=== PATIENT | male | born 1950 | race Caucasian/White ===

== ENCOUNTER 2019-08-29 22:27 | Emergency (ER) | payer OTHER, BC ==
[2019-08-29] MEDS ORDERED: CIPROFLOXACIN 400mg IV 400 MG/200 ML BAG IV ONE (22:53)
[2019-08-29] MEDS ORDERED: NA CHLORIDE 0.9% 3,000 ML ONE (22:53)
[2019-08-29] MEDS ORDERED: METRONIDAZOLE 500mg IVPB 500 MG/100 ML BAG IV ONE (22:53)
[2019-08-29] MEDS ORDERED: ONDANSETRON 4 MG/2 ML VIAL ONE (22:53)
[2019-08-29] MEDS ORDERED: FAMOTIDINE 20 MG/2 ML VIAL IV ONE (22:53)
[2019-08-29] MEDS ORDERED: FENTANYL CITR 100 MCG/2 ML ONE (22:53)
[2019-08-29 23:19] LABS: Absolute Lymphocytes (CBC) 0.4 K/uL (0.7-4.9); Basophils % 0.4 % (0-1.3); Lymphocytes % 15.2 % (15.3-44.8); MPV 9.1 fL (7.6-11.3); RBC Red Blood Cell Count 3.29 M/uL (4.33-5.43)
[2019-08-29 23:21] LABS: Protime INR 3.27
--- NOTE | 2019-08-29 23:43 | RAD REPORT ---
EXAM DESCRIPTION: RAD - Chest Single View - 08/29/2019 11:19 pm CLINICAL HISTORY: COUGH Chest pain. COMPARISON: No comparisons FINDINGS: Portable technique limits examination quality. The lungs are grossly clear. The heart is normal in size. No displaced fractures.Right-sided port cat heter has tip in the right atrium. IMPRESSION: No acute intrathoracic process suspected.
[2019-08-29 23:52] LABS: ALT/SGPT 14 U/L (12-78); AST/SGOT 25 U/L (15-37); Albumin 1.4 g/dL (3.4-5.0); Alkaline Phosphatase 111 U/L (45-117); BUN Blood Urea Nitrogen 36 mg/dL (7-18); Bicarbonate 27 mmol/L (21-32); Bilirubin Direct 0.6 mg/dL (0-0.2); Bilirubin Total 1.2 mg/dL (0.2-1.0); CKMB Creatine Kinase MB < 1.0 ng/mL (0.3-3.6); Creatine Phosphokinase 38 U/L (39-308); Glucose Level 98 mg/dL (74-106); Lipase 32 U/L (73-393); Magnesium 1.5 mg/dL (1.8-2.4); NT PRO-BNP 1425 pg/mL (<125); Potassium 4.1 mmol/L (3.5-5.1); Protein, Total 5.6 g/dL (6.4-8.2); Sodium Level 130 mmol/L (136-145); Troponin (Emerg Dept Use Only) < 0.02 ng/mL (0.0-0.045)
[2019-08-30 00:52] LABS: Anisocytosis 2+; Blood Morphology Comment NOTED (NOT SEEN); Platelet Estimate ADEQ; Polychromasia 1+
--- NOTE | 2019-08-30 01:30 | ER ---
Nurse's Notes [facility] Name: Domenico Gann Age: 69 yrs Sex: Male : 1950 Arrival Date: 08/29/2019 Time: 22:31 Bed 14 Private MD: Diagnosis: Abdominal tenderness-MILD PNEUMOPERITONUM, METATATIC PANCREATIC CANCER;Ascites-LARGE;Neutropenia;Anemia, unspecified;Hypomagnesemia;Hypotension Presentation: 08/29 22:35 Presenting complaint: EMS states: Pt with Hx of Pancreatic Cancer with Alder S/P wh Paracentesis last Wednesday with 6L removed, C/O weakness, nausea, vomiting and abdominal pain. Transition of care: patient was not received from another setting of care. Onset of symptoms was August 29, 2019. Risk Assessment: Do you want to hurt yourself or someone else? Patient reports no desire to harm self or others. Initial Sepsis Screen: Does the patient meet any 2 criteria? Systolic BP < 90 mmHg. HR > 90 bpm. Yes Does the patient have a suspected source of infection? Yes: Acute abdominal pain. Care prior to arrival: Medication(s) given: Normal saline infusion, 1000 mL, IV initiated. 20 GA, in the left antecubital area. 22:35 Method Of Arrival: EMS: [facility] 22:35 Acuity: EJ 2 Historical: - Allergies: 08/30 00:20 Cefzil; - Home Meds: 00:20 pravastatin 20 mg oral tab [Active]; montelukast 10 mg oral tab [Active]; Nexium 20 mg Oral cpDR [Active]; CoQ-10 oral [Active]; Centrum oral oral [Active]; Xarelto 20 mg oral tab [Active]; tramadol 50 mg Oral tab [Active]; loperamide 2 mg Oral cap [Active]; - PMHx: 00:20 Cancer; Chemo; Hypertension; - PSHx: 00:20 Stent Placement in Bile Duct; Paracentesis; - Immunization history:: Adult Immunizations not up to date. - Family history:: not pertinent. - Social history:: Smoking status: Patient/guardian denies using tobacco. - Ebola Screening: : Patient negative for fever greater than or equal to 101.5 degrees Fahrenheit, and additional compatible Ebola Virus Disease symptoms Patient denies exposure to infectious person. Screenin/24 22:35 Abuse screen: Denies threats or abuse. Denies injuries from another. Nutritional wh screening: No deficits noted. Tuberculosis screening: No symptoms or risk factors identified. Fall Risk None identified. Assessment: 22:35 General: Appears in no apparent distress. Behavior is calm, cooperative, appropriate wh for age. Pain: Complains of pain in abdomen Pain does not radiate. Pain currently is 8 out of 10 on a pain scale. Quality of pain is described as aching, Pain began suddenly. Neuro: Level of Consciousness is awake, alert, obeys commands, Oriented to person, place, time, situation, Appropriate for age. Cardiovascular: Heart tones S1 S2 Rhythm is sinus tachycardia. Respiratory: Airway is patent Respiratory effort is even, unlabored, Respiratory pattern is regular, symmetrical, Breath sounds are clear bilaterally. GI: Abdomen is round noted to have ascites, Bowel sounds present X 4 quads. Abd is rigid Reports diarrhea, nausea, vomiting. : No signs and/or symptoms were reported regarding the genitourinary system. EENT: No signs and/or symptoms were reported regarding the EENT system. Derm: Skin is intact, is healthy with good turgor, Skin is pink, warm \T\ dry. normal. Musculoskeletal: Circulation, motion, and sensation intact. 23:30 Reassessment: Patient appears in no apparent distress at this time. No changes from previously documented assessment. Patient and/or family updated on plan of care and expected duration. Pain level reassessed. Patient is alert, oriented x 3, equal unlabored respirations, skin warm/dry/pink. MD notified of Pt blood pressure still in the 80's systolic states just need to maintain MAP above 65. 08/30 00:26 Reassessment: Patient appears in no apparent distress at this time. No changes from wh previously documented assessment. Patient and/or family updated on plan of care and expected duration. Pain level reassessed. Patient is alert, oriented x 3, equal unlabored respirations, skin warm/dry/pink. 01:30 Reassessment: Patient appears in no apparent distress at this time. No changes from previously documented assessment. Patient and/or family updated on plan of care and expected duration. Pain level reassessed. Patient is alert, oriented x 3, equal unlabored respirations, skin warm/dry/pink. Pt still in pain notified provider. 02:15 Reassessment: Patient appears in no apparent distress at this time. No changes from previously documented assessment. Patient and/or family updated on plan of care and expected duration. Pain level reassessed. Patient is alert, oriented x 3, equal unlabored respirations, skin warm/dry/pink. Pt still pin pain Provider notified, explained POC to family. 03:30 Reassessment: Patient appears in no apparent distress at this time. No changes from previously documented assessment. Patient and/or family updated on plan of care and expected duration. Pain level reassessed. Patient is alert, oriented x 3, equal unlabored respirations, skin warm/dry/pink. Reassessment: Patient appears in no apparent distress at this time. No changes from previously documented assessment. Patient and/or family updated on plan of care and expected duration. Pain level reassessed. Patient is alert, oriented x 3, equal unlabored respirations, skin warm/dry/pink. Report given to Torito Phelps RN. 04:00 Reassessment: Patient appears in no apparent distress at this time. No changes from previously documented assessment. Patient and/or family updated on plan of care and expected duration. Pain level reassessed. Patient is alert, oriented x 3, equal unlabored respirations, skin warm/dry/pink. Report given to [facility]. Vital Signs: 08/29 22:35 BP 76 / 52; Pulse 124; Resp 18; Temp 98.9; Pulse Ox 94% ; Pain 8/10; 22:44 Weight 70.31 kg; Height 5 ft. 9 in. (175.26 cm); 23:30 BP 86 / 54; Pulse 113; Resp 18; Pulse Ox 99% on 2 lpm NC; 08/30 00:32 BP 82 / 67; Pulse 115; Resp 20; Pulse Ox 99% on 2 lpm NC; 01:00 BP 88 / 62; Pulse 115; Resp 18; Temp 99.2; Pulse Ox 98% 3 lpm ; 03:00 BP 85 / 59; Pulse 117; Resp 18; Pulse Ox 97% on 3 lpm NC; 03:00 BP 84 / 66; Pulse 113; Resp 18; Pulse Ox 97% on 3 lpm NC; 04:00 BP 89 / 60; Pulse 114; Resp 18; Pulse Ox 97% on 3 lpm NC; 08/29 22:44 Body Mass Index 22.89 (70.31 kg, 175.26 cm) ED Course: 08/29 22:30 Maintain EMS IV. Dressing intact. Good blood return noted. Site clean \T\ dry. 22:31 Patient arrived in ED. ds1 22:35 Arm band placed on left wrist. 22:35 Patient has correct armband on for positive identification. Placed in gown. Bed in low position. Call light in reach. Side rails up X 1. level glass vial filler on. Pulse ox on. NIBP on. 22:36 Luis Wesley MD is Attending Physician. darwin 22:43 Tita Fine is Primary Nurse. 22:45 Inserted saline lock: 18 gauge in right antecubital area, using aseptic technique. Blood collected. 23:19 Chest Single View XRAY In Process Unspecified. EDMS 23:36 Notified ED physician of a critical lab result(s). lactate of 5.8. 23:57 Triage completed. 08/30 01:16 Abdomen In Process Unspecified. EDMS 04:00 No provider procedures requiring assistance completed. Patient transferred, IV remains in place. Administered Medications: 08/29 23:10 Drug: NS 0.9% 1000 ml Route: IV; Rate: 1 bolus; Site: right antecubital; 08/30 01:23 Follow up: Response: No adverse reaction; IV Status: Completed infusion 08/29 23:10 Drug: NS 0.9% 1000 ml Route: IV; Rate: 1 bolus; Site: left antecubital; 23:10 Drug: Zofran 4 mg Route: IVP; Site: left antecubital; 08/30 01:24 Follow up: Response: No adverse reaction; Nausea is decreased 08/29 23:12 Drug: fentaNYL (PF) 25 mcg {Note: RASS 0.} Route: IVP; Site: right antecubital; 08/30 01:24 Follow up: Response: No adverse reaction; Pain is decreased; RASS: Alert and Calm (0) 08/29 23:13 Drug: Pepcid 20 mg Route: IVP; Site: left antecubital; 08/30 01:25 Follow up: Response: No adverse reaction 08/29 23:15 Drug: Cipro 400 mg Volume: 200 ml; Route: IVPB; Infused Over: 60 mins; Site: left antecubital; 23:15 Drug: Flagyl 500 mg Volume: 100 ml; Route: IVPB; Rate: 200 ml/hr; Infused Over: 30 mins; Site: right antecubital; 23:41 Drug: fentaNYL (PF) 25 mcg Route: IVP; Site: left antecubital; 08/30 01:24 Follow up: Response: No adverse reaction; Pain is decreased; RASS: Alert and Calm (0) 01:30 Drug: fentaNYL (PF) 25 mcg Route: IVP; Site: right antecubital; 04:25 Follow up: Response: No adverse reaction; RASS: Alert and Calm (0) 01:35 Drug: Magnesium Sulfate 2 grams Route: IVPB; Infused Over: 2 hrs; Site: left antecubital; 02:18 Drug: Albumin 25 grams Volume: 100 ml; Route: IVPB; Site: left antecubital; 02:19 Drug: fentaNYL (PF) 25 mcg {Note: RASS 0.} Route: IVP; Site: right antecubital; 04:25 Follow up: Response: No adverse reaction; Pain is decreased; RASS: Alert and Calm (0) 03:29 Drug: InvANZ 1 grams Route: IVPB; Infused Over: 30 mins; Site: right antecubital; 04:00 Drug: fentaNYL (PF) 25 mcg Route: IVP; Site: left antecubital; 04:24 Follow up: Response: No adverse reaction; RASS: Alert and Calm (0) 04:26 Not Given (md discretion): NS 0.9% (30 ml/kg) 30 ml/kg IV at bolus once; Sepsis Protocolwh Outcome: 01:27 ER care complete, transfer ordered by MD. granados 04:10 Patient left the ED. 04:10 Transferred by ground EMS to [facility], Transfer form completed. X-rays sent w/ patient. Note: Report given to [facility] 04:10 Condition: stable 04:10 Instructed on the need for transfer. Signatures: Dispatcher [employer] EDMS Luis Wesley MD MD cha Chretien, Felicia, RN RN Anastasia Crowder dsTita Martins Corrections: (The following items were deleted from the chart) 00:33 08/29 00:30 Reassessment: Patient appears in no apparent distress at this time. No wh changes from previously documented assessment. Patient and/or family updated on plan of care and expected duration. Pain level reassessed. Patient is alert, oriented x 3, equal unlabored respirations, skin warm/dry/pink. 08/30 04:34 04:17 Patient left the ED. [facility] 04:39 01:00 BP 88 / 62; Pulse 115bpm; Resp 18bpm; Pulse Ox 98% 3 lpm; [facility]
--- NOTE | 2019-08-30 01:31 | EDPHYS ---
Physician Documentation [facility] Name: Domenico Gann Age: 69 yrs Sex: Male : 1950 Arrival Date: 08/29/2019 Time: 22:31 Bed 14 Private MD: ED Physician Luis Wesley HPI: 08/29 22:44 This 69 yrs old Male presents to ER via Unassigned with complaints of [facility] ABDOMINAL PAIN AND WEAKNESS. 22:44 The patient presents with abdominal pain. The patient presents to the emergency darwin department with nausea, vomiting, diarrhea, that is continuous. Onset: The symptoms/episode began/occurred 2 day(s) ago. Possible causes: unknown. The symptoms are aggravated by movement, pressure, The symptoms are alleviated by nothing. Associated signs and symptoms: Pertinent positives: abdominal pain, anorexia, diarrhea, vomiting. Associated signs and symptoms: Pertinent positives: diarrhea, nausea, vomiting. Historical: - Allergies: 08/30 00:20 Cefzil; wh - Home Meds: 00:20 pravastatin 20 mg oral tab [Active]; montelukast 10 mg oral tab [Active]; Nexium 20 mg Oral cpDR [Active]; CoQ-10 oral [Active]; Centrum oral oral [Active]; Xarelto 20 mg oral tab [Active]; tramadol 50 mg Oral tab [Active]; loperamide 2 mg Oral cap [Active]; - PMHx: 00:20 Cancer; Chemo; Hypertension; wh - PSHx: 00:20 Stent Placement in Bile Duct; Paracentesis; - Immunization history:: Adult Immunizations not up to date. - Family history:: not pertinent. - Social history:: Smoking status: Patient/guardian denies using tobacco. - Ebola Screening: : Patient negative for fever greater than or equal to 101.5 degrees Fahrenheit, and additional compatible Ebola Virus Disease symptoms Patient denies exposure to infectious person. ROS: 08/29 22:44 Constitutional: Negative for fever, chills, and weight loss, Eyes: Negative for injury, darwin pain, redness, and discharge, ENT: Negative for injury, pain, and discharge, Neck: Negative for injury, pain, and swelling, Respiratory: Negative for shortness of breath, cough, wheezing, and pleuritic chest pain, Back: Negative for injury and pain, : Negative for injury, bleeding, discharge, and swelling, Skin: Negative for injury, rash, and discoloration, Neuro: Negative for headache, weakness, numbness, tingling, and seizure, Psych: Negative for depression, anxiety, suicide ideation, homicidal ideation, and hallucinations, Allergy/Immunology: Negative for hives, rash, and allergies, Endocrine: Negative for neck swelling, polydipsia, polyuria, polyphagia, and marked weight changes, Hematologic/Lymphatic: Negative for swollen nodes, abnormal bleeding, and unusual bruising. Cardiovascular: Positive for palpitations. Respiratory: Positive for cough. Abdomen/GI: Positive for abdominal pain, nausea and vomiting, diarrhea, abdominal cramps, abdominal distension, of the right upper quadrant, left upper quadrant, right lower quadrant and left lower quadrant. MS/extremity: Positive for swelling, of the right leg and left leg. Exam: 22:44 Constitutional: This is a well developed, well nourished patient who is awake, alert, darwin and in no acute distress. Head/Face: Normocephalic, atraumatic. Eyes: Pupils equal round and reactive to light, extra-ocular motions intact. Lids and lashes normal. Conjunctiva and sclera are non-icteric and not injected. Cornea within normal limits. Periorbital areas with no swelling, redness, or edema. ENT: Nares patent. No nasal discharge, no septal abnormalities noted. Tympanic membranes are normal and external auditory canals are clear. Oropharynx with no redness, swelling, or masses, exudates, or evidence of obstruction, uvula midline. Mucous membranes moist. Neck: Trachea midline, no thyromegaly or masses palpated, and no cervical lymphadenopathy. Supple, full range of motion without nuchal rigidity, or vertebral point tenderness. No Meningismus. Chest/axilla: Normal chest wall appearance and motion. Nontender with no deformity. No lesions are appreciated. Respiratory: Lungs have equal breath sounds bilaterally, clear to auscultation and percussion. No rales, rhonchi or wheezes noted. No increased work of breathing, no retractions or nasal flaring. Back: No spinal tenderness. No costovertebral tenderness. Full range of motion. Male : Normal genitalia with no discharge or lesions. Skin: Warm, dry with normal turgor. Normal color with no rashes, no lesions, and no evidence of cellulitis. Neuro: Awake and alert, GCS 15, oriented to person, place, time, and situation. Cranial nerves II-XII grossly intact. Motor strength 5/5 in all extremities. Sensory grossly intact. Cerebellar exam normal. Normal gait. Psych: Awake, alert, with orientation to person, place and time. Behavior, mood, and affect are within normal limits. 22:44 Cardiovascular: Rate: tachycardic, Rhythm: regular, Pulses: Pulses are 4+ in bilateral radial, brachial, femoral, popliteal, posterior tibial and and dorsalis pedis arteries.. Heart sounds: normal, Edema: 3+ edema to level of left midcalf and right midcalf, JVD: is not appreciated. Vital Signs: 22:35 BP 76 / 52; Pulse 124; Resp 18; Temp 98.9; Pulse Ox 94% ; Pain 8/10; 22:44 Weight 70.31 kg; Height 5 ft. 9 in. (175.26 cm); 23:30 BP 86 / 54; Pulse 113; Resp 18; Pulse Ox 99% on 2 lpm NC; 08/30 00:32 BP 82 / 67; Pulse 115; Resp 20; Pulse Ox 99% on 2 lpm NC; 01:00 BP 88 / 62; Pulse 115; Resp 18; Temp 99.2; Pulse Ox 98% 3 lpm ; 03:00 BP 85 / 59; Pulse 117; Resp 18; Pulse Ox 97% on 3 lpm NC; 03:00 BP 84 / 66; Pulse 113; Resp 18; Pulse Ox 97% on 3 lpm NC; 04:00 BP 89 / 60; Pulse 114; Resp 18; Pulse Ox 97% on 3 lpm NC; 08/29 22:44 Body Mass Index 22.89 (70.31 kg, 175.26 cm) MDM: 08/29 22:36 Patient medically screened. [facility] 22:48 Data reviewed: vital signs, nurses notes, lab test result(s), EKG, radiologic studies, darwin doppler, plain films. 08/29 22:39 Order name: Blood Culture Adult (2) 08/29 22:39 Order name: CBC with Diff; Complete Time: 01:02 08/29 22:39 Order name: Lactate; Complete Time: 01:02 08/29 22:39 Order name: Procalcitonin; Complete Time: 01: 08/29 22:39 Order name: Protime (+inr); Complete Time: 01: 08/29 22:39 Order name: Ptt, Activated; Complete Time: 01: 08/29 22:42 Order name: Basic Metabolic Panel; Complete Time: 01: [facility] 08/29 22:39 Order name: Chest Single View XRAY; Complete Time: 01: 08/29 22:42 Order name: LFT's; Complete Time: 01: [facility] 08/29 22:42 Order name: Magnesium; Complete Time: 01: [facility] 08/29 22:42 Order name: NT PRO-BNP; Complete Time: 01: [facility] 08/29 22:42 Order name: Troponin (emerg Dept Use Only); Complete Time: 01: [facility] 08/29 22:42 Order name: Lipase; Complete Time: 01: [facility] 08/29 22:42 Order name: AMMONIA; Complete Time: 01: [facility] 08/29 23:05 Order name: Creatine Phosphokinase; Complete Time: 01:02 [facility] 08/29 23:05 Order name: CKMB Creatine Kinase MB; Complete Time: 01:02 [facility] 08/29 23:31 Order name: Manual Differential; Complete Time: 01: [facility] 08/30 00:50 Order name: Abdomen [facility] 08/30 00:57 Order name: Glucose, Ancillary Testing; Complete Time: 01: [facility] 08/29 22:39 Order name: Accucheck; Complete Time: 23: 08/29 22:39 Order name: Cardiac monitoring; Complete Time: 08/29 22:39 Order name: EKG - Nurse/Tech; Complete Time: : 08/29 22:39 Order name: IV Saline Lock - Large Bore; Complete Time: : 08/29 22:39 Order name: Labs collected and sent; Complete Time: : 08/29 22:39 Order name: O2 Per Protocol; Complete Time: 08/29 22:39 Order name: O2 Sat Monitoring; Complete Time: : 08/29 22:42 Order name: EKG; Complete Time: :44 [facility] 08/29 22:42 Order name: Cardiac monitoring; Complete Time: 22:52 [facility] 08/29 22:42 Order name: EKG - Nurse/Tech; Complete Time: 22:52 [facility] 08/29 22:42 Order name: IV Saline Lock; Complete Time: :52 [facility] 08/29 22:42 Order name: Labs collected and sent; Complete Time: :52 [facility] 08/29 22:42 Order name: O2 Per Protocol; Complete Time: :52 [facility] 08/29 22:42 Order name: O2 Sat Monitoring; Complete Time: :52 [facility] Administered Medications: 23:10 Drug: NS 0.9% 1000 ml Route: IV; Rate: 1 bolus; Site: right antecubital; 08/30 01:23 Follow up: Response: No adverse reaction; IV Status: Completed infusion 08/29 23:10 Drug: NS 0.9% 1000 ml Route: IV; Rate: 1 bolus; Site: left antecubital; 23:10 Drug: Zofran 4 mg Route: IVP; Site: left antecubital; 08/30 01:24 Follow up: Response: No adverse reaction; Nausea is decreased 08/29 23:12 Drug: fentaNYL (PF) 25 mcg {Note: RASS 0.} Route: IVP; Site: right antecubital; 08/30 01:24 Follow up: Response: No adverse reaction; Pain is decreased; RASS: Alert and Calm (0) 08/29 23:13 Drug: Pepcid 20 mg Route: IVP; Site: left antecubital; 08/30 01:25 Follow up: Response: No adverse reaction 08/29 23:15 Drug: Cipro 400 mg Volume: 200 ml; Route: IVPB; Infused Over: 60 mins; Site: left antecubital; 23:15 Drug: Flagyl 500 mg Volume: 100 ml; Route: IVPB; Rate: 200 ml/hr; Infused Over: 30 wh mins; Site: right antecubital; 23:41 Drug: fentaNYL (PF) 25 mcg Route: IVP; Site: left antecubital; 08/30 01:24 Follow up: Response: No adverse reaction; Pain is decreased; RASS: Alert and Calm (0) 01:30 Drug: fentaNYL (PF) 25 mcg Route: IVP; Site: right antecubital; 04:25 Follow up: Response: No adverse reaction; RASS: Alert and Calm (0) 01:35 Drug: Magnesium Sulfate 2 grams Route: IVPB; Infused Over: 2 hrs; Site: left antecubital; 02:18 Drug: Albumin 25 grams Volume: 100 ml; Route: IVPB; Site: left antecubital; 02:19 Drug: fentaNYL (PF) 25 mcg {Note: RASS 0.} Route: IVP; Site: right antecubital; 04:25 Follow up: Response: No adverse reaction; Pain is decreased; RASS: Alert and Calm (0) 03:29 Drug: InvANZ 1 grams Route: IVPB; Infused Over: 30 mins; Site: right antecubital; 04:00 Drug: fentaNYL (PF) 25 mcg Route: IVP; Site: left antecubital; 04:24 Follow up: Response: No adverse reaction; RASS: Alert and Calm (0) 04:26 Not Given (md discretion): NS 0.9% (30 ml/kg) 30 ml/kg IV at bolus once; Sepsis Protocolwh Disposition: 08/30/19 01:27 Transfer ordered to Other Acute Care Facility. Diagnosis are Abdominal tenderness - MILD PNEUMOPERITONUM, METATATIC PANCREATIC CANCER, Ascites - LARGE, Neutropenia, Anemia, unspecified, Hypomagnesemia, Hypotension. - Reason for transfer: Higher level of care. - Accepting physician is TO [facility]. - Condition is Serious. - Problem is new. - Symptoms have improved. Signatures: Dispatcher [employer] EDMS Luis Wesley MD MD cha Chretien, Felicia, RN RN Tita Fine Corrections: (The following items were deleted from the chart) 08/29 23:03 22:43 PROTIME (+INR)+COAG.LAB.BRZ ordered. EDMS EDMS 23:04 22:40 BASIC METABOLIC PANEL+C.LAB.BRZ ordered. EDMS EDMS 23:04 22:40 CKMB+C.LAB.BRZ ordered. EDMS EDMS 23:04 22:40 CREATINE PHOSPHOKINASE+C.LAB.BRZ ordered. EDMS EDMS 23:04 22:40 HEPATIC FUNCTION+C.LAB.BRZ ordered. EDMS EDMS 23:04 22:43 CBC+H.LAB.BRZ ordered. EDMS EDMS 23:05 22:41 LIPASE+C.LAB.BRZ ordered. [facility] 23:05 22:41 TROPONIN (EMERG DEPT USE ONLY)+C.LAB.BRZ ordered. [facility] : 22:44 Chest Single View+RAD.RAD.BRZ ordered. [facility] 08/30 00:48 08/29 22:44 Abdomen Pelvis W Con+CT.RAD.BRZ ordered. [facility] 08/30 02:03 01:27 08/30/2019 01:27 Transfer ordered to Other Acute Care Facility. Diagnosis is darwin Abdominal tenderness; Ascites; Neutropenia; Anemia, unspecified; Hypomagnesemia. Reason for transfer: Higher level of care. Accepting physician is TO [facility]. Condition is Serious. Problem is new. Symptoms have improved. [facility] 04:17 02:03 08/30/2019 01:27 Transfer ordered to Other Acute Care Facility. Diagnosis is fc Abdominal tenderness - MILD PNEUMOPERITONUM, METATATIC PANCREATIC CANCER; Ascites - LARGE; Neutropenia; Anemia, unspecified; Hypomagnesemia; Hypotension. Reason for transfer: Higher level of care. Accepting physician is TO [facility]. Condition is Serious. Problem is new. Symptoms have improved. darwin
[2019-08-30] MEDS ORDERED: Magnesium Sulfate 2gm IVPB 2 G/50 ML BAG IV ONE (01:41)
[2019-08-30] MEDS ORDERED: FENTANYL CITR 100 MCG/2 ML ONE (02:11)
[2019-08-30] MEDS ORDERED: ALBUMIN HUMAN 25% 100 ML IV ONE (02:11)
[2019-08-30] MEDS ORDERED: ERTAPENEM SODIUM 1 GM VIAL ONE (03:07)
[2019-08-30] MEDS ORDERED: NA CHLORIDE 0.9% 100 ML IV ONE (03:25)
[2019-08-30 04:29] VITALS: TEMP 98.9
[2019-08-30 04:30] VITALS: O2SAT 99
[2019-08-30 04:31] VITALS: BP 82/67
--- NOTE | 2019-08-30 11:41 | RAD REPORT ---
EXAM DESCRIPTION: Abdomen Pelvis Wo Contrast CLINICAL HISTORY: ABD PAIN COMPARISON: None. TECHNIQUE: CT ABDOMEN PELVIS WITHOUT IV CONTRAST on 08/29/2019 10:42 PM [employer] This exam was performed according to our departmental dose-optimization program, which includes autom ated exposure control, adjustment of the mA and/or kV according to patient size and/or use of iterati ve reconstruction technique. FINDINGS: Lower lungs are clear. Abdomen: The liver is normal in appearance. Common bile duct stent is in place. There is large amount of ascites diffusely. There is a hiatal hernia. There is extensive thickening of the stomach. There is nondependent pneumobilia. The pancreas and spleen are normal in appearance. The adrenal glands and kidneys are unremarkable. Abdominal aorta is normal in course and caliber without aneurysm. There is free intraperitoneal air. There is no retroperitoneal adenopathy. Pelvis: There is extensive thickening of much of the colon as well as multiple small bowel loops. Uri nary bladder is unremarkable. There is large amount of free pelvic fluid. Skeleton: There are no acute osseous findings. No suspicious bony lesions. IMPRESSION: Ascites with mild pneumoperitoneum. Correlate for any recent paracentesis. Extensive thickening of much of the bowel including the stomach, small and large bowel. Hepatic cirrhosis Electronically signed by: Parker Lion MD 08/30/2019 1:36 AM [employer] Due to temporary technical issues with the PACS/Fluency reporting system, reports are being signed by the in house radiologist as a courtesy to ensure prompt reporting. The interpreting radiologist is f ully responsible for the content of the report.
--- NOTE | 2019-08-31 08:12 | EKG ---
Test Date: 2019-08-29 Test Time: 22:37:52 Pilot Safety Inspector: NATE MEASUREMENT RESULTS: Intervals: Rate: 129 NV: 146 QRSD: 82 QT: 302 QTc: 442 [place]: P: 76 NV: 146 QRS: 41 T: 77 INTERPRETIVE STATEMENTS: Sinus tachycardia with premature supraventricular complexes Possible Inferior infarct, age undetermined Anteroseptal infarct, age undetermined Abnormal ECG No previous ECG available for comparison Electronically Signed On 08-31-19 08:10:16 CREEL OPERATOR by Raji Balderas
== END 2019-08-30 04:17 ==
LOC: ER 22:27
DX: E83.42 Hypomagnesemia (principal); I95.9 Hypotension, unspecified; D64.9 Anemia, unspecified; D70.9 Neutropenia, unspecified; R18.8 Other ascites; C25.9 Malignant neoplasm of pancreas, unspecified; K66.8 Other specified disorders of peritoneum; I10 Essential (primary) hypertension
CPT/HCPCS: 96361; 93005; 87040 ×2; 85025; 80048; 36415; 82140; 83735; 82550; 85610; 82947; 80076; 83605 ×2; 85730; 84484; 82553; 83690; 84145; 83880; 74176; 71045; 96375; 96374; 99285; J3010 ×2; J1335; J3475; P9047; J7030; J2405; J0744